=== PATIENT | female | born 1975 | race Two or more races ===

== ENCOUNTER 2022-05-23 07:00 | Inpatient (IN) | payer OTHER ==
[~2022-05-23] VITALS: Ht 162.6 cm; Wt 74.8 kg
[2022-05-28] MEDS ORDERED: NEURONTIN300 MG PO (06:59)
[2022-05-28] MEDS ORDERED: IBU800 MG PO (06:59)
== END 2022-05-28 10:16 | disposition home or self-care (01) | DRG 743 ==
LOC: SURH 05-27 07:00 → OB/GYN 05-27 07:53 → O/R 05-27 07:53 → OB/GYN 05-27 13:54 → SURH 05-27 16:30 → OB/GYN 05-28 10:16
PROVIDERS: ADMIT Obstetrics & Gynecology Gynecology; ATTEND Obstetrics & Gynecology Gynecology
PROC: 0UT74ZZ Resection of Bilateral Fallopian Tubes, Percutaneous Endoscopic Approach (ICD-10-PCS; 2022-05-27)
PROC: 0UT24ZZ Resection of Bilateral Ovaries, Percutaneous Endoscopic Approach (ICD-10-PCS; 2022-05-27)
PROC: 0UT94ZZ Resection of Uterus, Percutaneous Endoscopic Approach (ICD-10-PCS; principal; 2022-05-27 16:30)
DX: D25.0 Submucous leiomyoma of uterus (principal); D25.2 Subserosal leiomyoma of uterus; Z20.822 Contact with and (suspected) exposure to COVID-19; D27.1 Benign neoplasm of left ovary; N83.11 Corpus luteum cyst of right ovary; N83.01 Follicular cyst of right ovary